=== PATIENT | female | born 1990 | race Caucasian/White ===

== ENCOUNTER 2022-08-23 12:06 | Emergency (ER) | payer OTHER ==
[~2022-08-23] VITALS: Wt 74.8 kg
[2022-08-23] MEDS ORDERED: ERYTHROMYCIN OPH1 GM OPH (13:40)
== END 2022-08-23 13:42 | disposition home or self-care (01) ==
LOC: ED 12:06
DX: H27.8 Other specified disorders of lens (principal); Z88.6 Allergy status to analgesic agent; Z88.5 Allergy status to narcotic agent

== ENCOUNTER → 2024-09-22 | Outpatient (CLI) | payer OTHER ==
[~2024-09-22] MED LIST: ERYTHROMYCIN OPH1 GM OPH
[2024-09-24 20:07] LABS: TB1 Ag VALUE 0.04 IU/mL (.)
== END | disposition home or self-care (01) ==
LOC: LAB 10:43
PROVIDERS: ATTEND Family Medicine
DX: Z02.0 Encounter for examination for admission to educational institution (principal)